=== PATIENT | male | born 1945 | race Caucasian/White ===

== ENCOUNTER 2024-12-08 16:00 | Emergency (ER) | payer MEDICARE, MEDICAID ==
[~2024-12-08 16:00] MED LIST: Iopamidol 370 76% 100 ML VIAL ONE
[2024-12-08] MEDS ORDERED: Famotidine/PF 20 mg/2ml Vial ONE (17:08)
[2024-12-08] MEDS ORDERED: diphenhydrAMINE 50 MG/ML VIAL ONE (17:08)
[2024-12-08 17:09] LABS: Hematocrit 37.4 % (42.0-52.0); Hemoglobin 12.1 g/dL (14.0-18.0); Mean Corpuscular Hemoglobin 30.9 pg (27.0-31.0); Mean Corpuscular Volume 95.5 fl (78.0-98.0); Platelet Count 262 10x3/uL (130-400); Red Blood Cell (RBC) Count 3.91 mill/uL (4.70-6.10); White Blood Cell (WBC) Count 4.6 10x3/uL (4.8-10.8)
[2024-12-08 17:19] LABS: ALT (SGPT) 8 U/L (Less than 45); AST (SGOT) 16 U/L (11-34); Albumin 3.3 g/dL (3.1-4.5); Alkaline Phosphatase 66 U/L (40-110); Anion Gap 13 mmol/L (10-20); BUN (Urea Nitrogen) 10 mg/dL (8.4-25.7); Bilirubin, Total 0.3 mg/dL (0.3-1.2); Calc. Creatinine Clearance 0 mL/min (70-130); Calcium 8.2 mg/dL (7.8-10.44); Carbon Dioxide 25 mmol/L (23-31); Chloride 104 mmol/L (98-107); Globulin 2.7 g/dL (2.4-3.5); Glucose 90 mg/dL (83-110); Lipase 9 U/L (8-78); Potassium 4.2 mmol/L (3.5-5.1); Sodium 138 mmol/L (136-145)
[2024-12-08 17:20] LABS: MDiff Complete? YES; Manual Diff?? YES
[2024-12-08 17:21] LABS: Platelet Adequacy Comment Appears Adequate
[2024-12-08 18:43] LABS: Glucose, Urine (Dipstick) Negative (Negative); Leukocyte Moderate (Negative); Protein, Urine (Dipstick) Negative (Neg-Trace); Specific Gravity, Urine 1.015 (1.005-1.030)
[2024-12-08 18:55] LABS: Bacteria/HPF 2+ HPF (None Seen); CAUTI Indications for Culture Dysuria,urgency,freq; RBC/HPF 0-3 HPF (0-3); Urine Culture Reflex Yes Yes; WBC/HPF Greater Than 50 HPF (0-3)
[2024-12-08] MEDS ORDERED: cefTRIAXone (ROCEPHIN) 1 GM VIAL ONE (18:59)
== END 2024-12-08 19:42 ==
LOC: MADERS 16:00
DX: N30.01 Acute cystitis with hematuria (principal); N40.1 Benign prostatic hyperplasia with lower urinary tract symptoms; D64.9 Anemia, unspecified; I10 Essential (primary) hypertension; Z86.73 Personal history of transient ischemic attack (TIA), and cerebral infarction without residual deficits; Z79.899 Other long term (current) drug therapy; Z79.82 Long term (current) use of aspirin; Z79.02 Long term (current) use of antithrombotics/antiplatelets
CPT/HCPCS: 74177; 80053; 81001; 83605; 83690; 85025; 87086; 93005; 96365; 96375; J0696; J1200; J1308; J2919; Q9967

== ENCOUNTER 2024-12-25 04:12 | Outpatient (CLI) | payer MEDICARE, MEDICAID ==
[2024-12-25 06:22] LABS: #Basophils 0.0 thou/uL (0.0-0.2); #Eosinophils 0.1 thou/uL (0.0-0.7); #Lymphocytes 1.3 thou/uL (1.20-3.40); #Monocytes 0.4 thou/uL (0.11-0.59); #Neutrophils 2.1 thou/uL (1.40-6.50); %Basophils 0.8 % (0.0-1.0); %Eosinophils 3.6 % (0.0-10.0); %Lymphocytes 32.2 % (21.0-51.0); %Monocytes 10.0 % (0.0-10.0); %Neutrophils 53.4 % (42.0-75.0); Hematocrit 37.0 % (42.0-52.0); Hemoglobin 12.0 g/dL (14.0-18.0); Mean Corpuscular Hemoglobin 31.0 pg (27.0-31.0); Mean Corpuscular Volume 95.8 fl (78.0-98.0); Platelet Count 211 10x3/uL (130-400); Red Blood Cell (RBC) Count 3.86 mill/uL (4.70-6.10); White Blood Cell (WBC) Count 4.0 10x3/uL (4.8-10.8)
[2024-12-25 06:25] LABS: Glucose, Urine (Dipstick) Negative (Negative); Leukocyte Trace (Negative); Protein, Urine (Dipstick) Negative (Neg-Trace); Specific Gravity, Urine 1.010 (1.005-1.030)
[2024-12-25 06:33] LABS: Bacteria/HPF Rare-Few HPF (None Seen)
[2024-12-25 06:34] LABS: Anion Gap 14 mmol/L (10-20); BUN (Urea Nitrogen) 10 mg/dL (8.4-25.7); Calc. Creatinine Clearance 0 mL/min (70-130); Calcium 8.3 mg/dL (7.8-10.44); Carbon Dioxide 23 mmol/L (23-31); Chloride 107 mmol/L (98-107); Glucose 94 mg/dL (83-110); Potassium 3.8 mmol/L (3.5-5.1); Sodium 140 mmol/L (136-145)
== END 2024-12-25 04:13 | disposition home or self-care (01) ==
LOC: MADLAB 04:12
PROVIDERS: ATTEND Family Medicine
DX: I69.30 Unspecified sequelae of cerebral infarction (principal); N39.0 Urinary tract infection, site not specified; I10 Essential (primary) hypertension; R13.12 Dysphagia, oropharyngeal phase
CPT/HCPCS: 80048; 81001; 85025; 87086

== ENCOUNTER 2025-01-16 14:24 | Outpatient (CLI) | payer MEDICARE, MEDICAID ==
[2025-01-16 14:36] LABS: #Basophils 0.1 thou/uL (0.0-0.2); #Eosinophils 0.1 thou/uL (0.0-0.7); #Lymphocytes 1.5 thou/uL (1.20-3.40); #Monocytes 0.3 thou/uL (0.11-0.59); #Neutrophils 3.0 thou/uL (1.40-6.50); %Basophils 1.0 % (0.0-1.0); %Eosinophils 2.8 % (0.0-10.0); %Lymphocytes 30.8 % (21.0-51.0); %Monocytes 6.2 % (0.0-10.0); %Neutrophils 59.2 % (42.0-75.0); Hematocrit 38.2 % (42.0-52.0); Hemoglobin 12.6 g/dL (14.0-18.0); Mean Corpuscular Hemoglobin 30.7 pg (27.0-31.0); Mean Corpuscular Volume 93.4 fl (78.0-98.0); Platelet Count 267 10x3/uL (130-400); Red Blood Cell (RBC) Count 4.09 mill/uL (4.70-6.10); White Blood Cell (WBC) Count 5.0 10x3/uL (4.8-10.8)
== END 2025-01-16 14:25 | disposition home or self-care (01) ==
LOC: MADLAB 14:24
PROVIDERS: ATTEND Family Medicine
DX: K21.9 Gastro-esophageal reflux disease without esophagitis (principal); F25.1 Schizoaffective disorder, depressive type
CPT/HCPCS: 82607; 82746; 85025